=== PATIENT | female | born 1955 | race Caucasian/White ===

== ENCOUNTER 2019-04-10 01:29 | Observation (INO) | payer OTHER, SELFPAY ==
[2019-04-10] VITALS (15 sets, daily range): BP systolic 105–130; BP diastolic 62–118; PULSE 65–147; RESP 14–25; TEMP 36.5–36.9; O2SAT 96–100; BMI 36.9
--- NOTE | 2019-04-10 | ECHO_ITS ---
Patient Info Name: Odalys Douglass Age: 63 years : 1955 Gender: Female Ht: 67 in Wt: 235 lbs BSA: 2.29 m2 HR: 69 bpm BP: 119 / 67 mmHg Technical Quality: Good Exam Date: 04/10/2019 1:18 PM Exam Location: [facility] Pul[facility] Patient Status: Inpatient Admit Date: 04/10/2019 Staff Ordering Physician: Nadeem Alejandro MD (stephanie/marla) [employer]os Architect: Daniele Parks, RDCS, RT Attending Provider: lAexis Heard MD Exam Type: CA echo doppler color flow Study Info Indications I48.0 - Paroxysmal atrial fibrillation Complete two-dimensional, color flow and Doppler transthoracic echocardiogram is performed. Summary 1. Left ventricular systolic function is normal, estimated at 60-65%. 2. There is mildly increased left ventricular wall thickness. 3. Right ventricular systolic function is normal. 4. Left atrium is top normal to mildly dilated in size. 5. The mitral valve has normal leaflets. 6. There is no mitral valve regurgitation. 7. There is no aortic valve sclerosis. Left Ventricle Left ventricular chamber dimension is normal. Left ventricular systolic function is normal, estimated at 60-65%. There is mildly increased left ventricular wall thickness. Left ventricular septal wall motion is normal. The left ventricular diastolic function is grade I diastolic dysfunction. Right Ventricle Right ventricular chamber dimension is normal. Right ventricular systolic function is normal. Left Atria Left atrium is top normal to mildly dilated in size. Right Atria Right atrial chamber dimension is normal. Aortic Valve The aortic valve is trileaflet. There is no aortic valve sclerosis. There is no aortic valve stenosis. There is no aortic valve regurgitation. Pulmonic Valve The pulmonic valve is normal. There is no pulmonic valve stenosis. There is no pulmonic regurgitation. Mitral Valve The mitral valve has normal leaflets. There is no mitral valve stenosis. There is no mitral valve regurgitation. Tricuspid Valve The tricuspid valve leaflets are normal. There is trace tricuspid valve regurgitation. No pulmonary hypertension, estimated pulmonary arterial systolic pressure is 30 mmHg. Pericardium/Pleural The pericardium appears normal. There is no pericardial effusion. Inferior Vena Cava Normal inferior vena cava with >50% collapse upon inspiration consistent with normal right atrial pressure, 5 mmHg. Aorta The aortic root size at the sinus of Valsalva is normal. The prox ascending aorta size is normal. Left Ventricular Outflow Tract Name Value Normal LVOT 2D LVOT Diameter 2.1 cm LVOT Doppler LVOT Peak Velocity 124 cm/s LVOT Peak Gradient 6 mmHg LVOT Mean Gradient 3 mmHg LVOT VTI 27 cm LVOT VTI/AV VTI Ratio 0.7 LVOT Stroke Volume 93 ml LVOT CO 6.7 l/min LVOT CI 2.9 l/min/m2 Mitral Valve
--- NOTE | ~2019-04-10 | XR_ITS ---
EXAMINATION: XR chest 2V DATE: 04/10/2019 02:56 INDICATION: Atrial fibrillation with RVR TECHNIQUE: PA and lateral views of the chest are obtained. COMPARISON: None available FINDINGS: The lungs are free of acute opacities. There is no pleural effusion or pneumothorax. The ca rdiomediastinal silhouette is normal. There is moderate thoracic spondylosis. 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 IMPRESSION: 1. No acute cardiopulmonary abnormality. Reviewed, dictated and finalized at location A. NT RENEWAL SPECIALIST
--- NOTE | 2019-04-10 01:47 | ECG_ITS ---
Measurements Intervals [place] Rate: 147 P: AR: 0 QRS: 53 QRSD: 102 T: 3 QT: 309 QTc: 484 Interpretive Statements ATRIAL FIBRILLATION WITH RAPID VENTRICULAR RESPONSE DELAYED PRECORDIAL R/S TRANSITION BORDERLINE ST-T WAVE ABNORMALITY- DIFFUSE LEADS BASELINE WANDER- V5-V6 ABNORMAL ECG Electronically Signed On 04-10-2019 15:43:50 [employer]ACH[employer] PANEL JOINER by Mehran Dominguez D.O.
[2019-04-10 01:56] LABS: Basophils Percent Auto 0.4 % (0.2-1.2); Eosinophils Absolute Auto 0.3 K/mm3 (0-0.3); Eosinophils Percent Auto 4.7 % (0-4.4); Hematocrit 43.2 % (37.0-47.0); Hemoglobin 14.4 g/dL (12.0-15.0); Immature Granulocyte Absolute 0.01 K/mm3 (0.00-0.031); Immature Granulocyte Percent A 0.1 % (0-0.5); Lymphocytes Absolute Auto 2.48 K/mm3 (0.9-3.2); Lymphocytes Percent Auto 34.5 % (18.3-44.2); Mean Corpuscular HGB Conc 33.3 g/dl (32-36); Mean Corpuscular Hemoglobin 29.9 pg (26-34); Mean Corpuscular Volume 89.8 fl (80-100); Mean Platelet Volume 10.4 fl (7.4-10.4); Monocytes Absolute Auto 0.5 K/mm3 (0.1-0.6); Monocytes Percent Auto 7.2 % (2.6-8.5); Neutrophils Absolute Auto 3.8 K/mm3 (1.3-6.7); Neutrophils Percent Auto 53.1 % (45.5-73.1); Platelet Count Result 198 k/mm3 (150-375); Red Blood Count 4.81 M/mm3 (4.2-5.4); Red Cell Distribution Width 13.1 % (11.5-14.5); White Blood Count 7.2 K/mm3 (4.5-10.0)
[2019-04-10 02:08] LABS: Blood Urea Nitrogen 12 mg/dL (7-17); Calcium 9.7 mg/dL (8.4-10.2); Carbon Dioxide 23 mmol/L (22-30); Chloride 105 mmol/L (98-107); Estimated CRCL calculation 92 ml/min; Estimated Glomerular Filt Rate > 60; Glucose 201 mg/dL (65-105); Potassium 3.9 mmol/L (3.4-5.0); Sodium 140 mmol/L (137-145)
[2019-04-10 02:22] LABS: Troponin I < 0.012 ng/mL (0.000-0.034)
--- NOTE | 2019-04-10 02:22 | ED.CHESTPAIN ---
HPI - Chest Pain General Chief Complaint: Chest Pain Stated Complaint: CHEST PRESSURE Time Seen by Provider: 04/10/19 02:22 Source: patient and RN notes reviewed Mode of arrival: ambulatory Limitations: no limitations History of Present Illness HPI narrative: A 63 y/o female presents to the ED with constant lt CP beginning at 12:25 AM this morning. She states that she was sleeping and that at 12:25 AM she woke up with lt CP. She reports associated palpitations and SOB. She notes that her family has a extensive cardiac hx and that she has had 2 cardiac caths but denies any stent placement. She also denies any fevers, chills, N/V/D, or ABD pain. MD complaint: chest pain Onset (ago): hour(s) (1) Timing of current episode: constant Onset: awoke with symptoms Pain location: left chest Associated symptoms: dyspnea and palpitations Related Data Allergies Allergy/AdvReac Type Severity Reaction Status Date / Time azithromycin Allergy Stopped Verified 04/10/19 02:06 Breathing clindamycin Allergy Rash Verified 04/10/19 02:06 Penicillins Allergy Stopped Verified 04/10/19 02:06 Breathing Sulfa (Sulfonamide Allergy Stopped Verified 04/10/19 02:06 Antibiotics) Breathing Review of Systems Review of Systems: All systems reviewed & are unremarkable except as noted in HPI and below Constitutional: Constitutional: Denies chills and Denies fever(s) Cardiovascular: Cardiovascular: Reports chest pain (lt) and Reports palpitations Respiratory: Respiratory: Reports dyspnea Gastrointestinal: Gastrointestinal: Denies abdominal pain, Denies diarrhea, Denies nausea and Denies vomiting PMF Past Medical History Medical History (Updated 04/10/19 @ 05:04 by Blade Archer DO) Medical history unknown Surgical History Surgical History (Updated 04/10/19 @ 02:29 by Rene Gilbert) Hx of cardiac cath x2. Social History Social History (Updated 04/10/19 @ 02:29 by Rene Gilbert) Smoking status: Unknown if ever smoked Gender identity (if verbalized by the patient): Female Exam Narrative: Exam Narrative: APPEARANCE: No acute distress, nontoxic, resting in bed EYES: EOMI HEENT: Normocephalic, atraumatic, OMM RESPIRATORY: No respiratory distress Clear to auscultation bilaterally with no rhonchi wheezing or rales. CARDIOVASCULAR: Irregular and tachycardic without murmurs rubs or gallops. ABDOMINAL: Soft, nontender, nondistended, no rebound or guarding MUSCULOSKELETAl: Moves all extremities. No clubbing, cyanosis or edema. NEURO: Awake and alert. Following commands, speech normal, no focal deficits SKIN:: Warm, dry. No rashes lesions or abrasions PSYCHIATRIC: Normal affect/mood, Course Course Emergency Course: Discussed with Dr Poon presentation work-up. Agrees admission to his service. Recommends continue Cardizem drip with patient receive Lovenox and further inpatient evaluation Discussed with patient and family results of workup and diagnosis. Discussed need for admission. Patient and family understand and agree to current treatment plan Patient converted to sinus rhythm. Called and discussed with Dr Poon. This time recommends Cardizem drip stopped and patient started on Cardizem 30 mg p.o. every 6 hours Vital Signs Vital signs: Vital Signs Temperature 98.5 F 04/10/19 01:54 Pulse Rate 147 H 04/10/19 01:54 Respiratory Rate 25 H 04/10/19 01:54 Blood Pressure 112/70 04/10/19 01:54 Pulse Oximetry 100 04/10/19 01:54 Temperature 98.5 F 04/10/19 01:54 Pulse Rate 69 04/10/19 05:13 Respiratory Rate 16 04/10/19 05:13 Blood Pressure 107/94 H 04/10/19 05:13 Pulse Oximetry 97 04/10/19 05:13 MDM - Chest Pain Lab Data Result diagrams: 04/10/19 01:50 04/10/19 01:50 Labs: Lab Results 04/10/19 04/10/19 04/10/19 Range/Units 01:50 01:50 02:39 WBC 7.2 (4.5-10.0) K/mm3 RBC 4.81 (4.2-5.4) M/mm3 Hgb 14.4 (12.0-15.0) g/dL Hct 43.2
[2019-04-10 02:59] LABS: Partial Thromboplastin Time 28.1 SECONDS (22.3-36.8)
--- NOTE | 2019-04-10 03:11 | PC.NURSE ---
Per EDP Gianni, no dose of aspirin needed.
[2019-04-10] MEDS: SODIUM CHLORIDE 0.9% IV 1,000 ML 999 ML IV CONT (03:22)
--- NOTE | 2019-04-10 04:42 | ECG_ITS ---
Measurements Intervals [place] Rate: 68 P: 15 NC: 166 QRS: 40 QRSD: 118 T: 34 QT: 403 QTc: 432 Interpretive Statements SINUS RHYTHM DELAYED PRECORDIAL R/S TRANSITION CONSIDER INFERIOR INFARCT, AGE INDETERMINATE BASELINE WANDER- I, II ABNORMAL ECG Electronically Signed On 04-10-2019 15:49:46 ASSURANCE MANAGER INSURANCE by Mehran Dominguez D.O.
[2019-04-10] MEDS: ENOXAPARIN 120 MG/0.8 ML SYRINGE 109 MG SUB-Q (04:46)
[2019-04-10] MEDS: DILTIAZEM HCL 30 MG TABLET PO (05:17)
--- NOTE | 2019-04-10 05:50 | PC.NURSE ---
This patient, Odalys Douglass, was admitted to IMU Room 203-01 on 04/10/2019 at 0544. Patient/family oriented to hospital policies and general routines including ID bracelet, bed and alarms, visiting hours, pain management, procedures, bathroom and other care routines, personal items, smoking policy, room service/diet, and visiting hours. Valuables list has been completed. Information on how to activate the Rapid Response Team has been discussed. Patient/Family are encouraged to report perceived risks to care and to ask questions if they do not understand what they are told or what they should do.
[2019-04-10 05:55] LABS: Troponin I 0.131 ng/mL (0.000-0.034)
[2019-04-10 08:32] LABS: Troponin I 0.309 ng/mL (0.000-0.034)
[2019-04-10 09:27] LABS: Glucose Point of Care 58 (65-105)
[2019-04-10 09:47] LABS: Glucose Point of Care 131 (65-105)
--- NOTE | 2019-04-10 10:17 | PM.IMHP ---
H&P: HPI History of Present Illness Chief complaint: A FIB WITH RVR Narrative: Mrs. Douglass is a pleasant 63 year old female with past medical history of diabetes, hypertension and fatty liver disease who presented to [facility] because of palpitations. Patient was found to be in atrial fibrillation with rapid ventricular response. She was given medications and converted to normal sinus rhythm According the patient she is visiting here her family and she was supposed to go home back today. Patient lives in [place], [place] and does have transportation solutions manager over there. She stated she had palpitations once in the past during her stress test. She stated she had 2 cardiac catheterizations 2015 and 2018 which showed minor nonobstructive coronary artery disease. The patient denies diagnosis of arrhythmia in the past. Today she feels fine, denies any chest pain shortness or palpitations. Eager to go home Review of Systems Review of Systems: All systems reviewed & are unremarkable except as noted in HPI and below Constitutional: Constitutional: Reports as per HPI Eyes: Eyes: Reports as per HPI ENT: Reports system reviewed and no additional complaints, except as documented and Reports as per HPI Cardiovascular: Cardiovascular: Reports as per HPI Respiratory: Respiratory: Reports as per HPI Gastrointestinal: Gastrointestinal: Reports as per HPI Genitourinary: Genitourinary: Reports as per HPI Musculoskeletal: Musculoskeletal: Reports as per HPI PMFSH Past Medical History Medical History (Updated 04/10/19 @ 10:36 by Aleksey Saeed MD) Medical history unknown Surgical History Surgical History (Updated 04/10/19 @ 02:29 by Rene Gilbert) Hx of cardiac cath x2. Family History Family History (Updated 04/10/19 @ 05:49 by Nichole Fernández RN) Sibling Hx of CABG Cardiac arrest Sibling Cardiac arrest Father Diabetes mellitus Hx of CABG Mother Diabetes mellitus Hx of CABG Social History Social History (Updated 04/10/19 @ 02:29 by Rene Gilbert) Smoking status: Never smoker Alcohol intake: current Drinks per week: 4 Substance use: never Gender identity (if verbalized by the patient): Female Spiritual care concerns: Yes (Jew) Agree to blood products: Yes Meds Home Medications and Allergies Home Medications Medication Instructions Recorded Confirmed Type aspirin [Aspir-81] 81 mg PO DAILY 04/10/19 04/10/19 History atorvastatin 40 mg PO DAILY 04/10/19 04/10/19 History canagliflozin [Invokana] 100 mg PO DAILY 04/10/19 04/10/19 History citalopram 30 mg PO DAILY 04/10/19 04/10/19 History glipizide 10 mg PO DAILY 04/10/19 04/10/19 History insulin NPH isoph U-100 human 20 unit SUBCUT DAILY 04/10/19 04/10/19 History [Humulin N NPH U-100 Insulin] insulin NPH isoph U-100 human 80 unit SUBCUT HS 04/10/19 04/10/19 History [Humulin N NPH U-100 Insulin] insulin lispro [Humalog KwikPen See Protocol SUBCUT QID 04/10/19 04/10/19 History Insulin] losartan 50 mg PO BID 04/10/19 04/10/19 History metformin 850 mg PO BID 04/10/19 04/10/19 History Allergies Allergy/AdvReac Type Severity Reaction Status Date / Time azithromycin Allergy Stopped Verified 04/10/19 02:06 Breathing clindamycin Allergy Rash Verified 04/10/19 02:06 Penicillins Allergy Stopped Verified 04/10/19 02:06 Breathing Sulfa (Sulfonamide Allergy Stopped Verified 04/10/19 02:06 Antibiotics) Breathing Vital Signs Vital Signs - 24 hr 04/10/19 01:54 04/10/19 02:23 04/10/19 02:40 Temperature 36.9 C Pulse Rate 147 H 141 H 131 H Respiratory Rate 25 H 18 Blood Pressure 112/70 130/118 H Pulse Oximetry 100 99 04/10/19 03:30 04/10/19 04:23 04/10/19 05:13 Temperature Pulse Rate 128 H 73 69 Respiratory Rate 19 18 16 Blood Pressure 106/91 H 105/62 107/94 H Pulse Oximetry 96 97 97 04/10/19 05:44 04/10/19 06:00 04/10/19 08:47 Temperature 36.7 C 36.6 C Pulse Rate 68 65 68 Respiratory
[2019-04-10 13:03] LABS: Glucose Point of Care 127 (65-105)
[2019-04-10] MEDS: RIVAROXABAN 20 MG TABLET PO (17:07)
--- NOTE | 2019-05-15 17:10 | PM.DS ---
DS: Diagnosis Admitting Diagnosis Admitting Diagnosis: Chest pain, unspecified Discharge Diagnosis (1) Atrial fibrillation with rapid ventricular response: Code(s): I48.91 - Unspecified atrial fibrillation Status: Acute Assessment and Plan: Patient was found to be in atrial fibrillation with rapid ventricular response. She converted to normal sinus rhythm and remains in normal sinus rhythm. Will start metoprolol for heart rate control. patient was found to have borderline troponin which is probably due to her AFib with RVR. She stated she had 2 cardiac catheterizations 2015 and 2018 which showed only mild nonobstructive coronary artery disease The patient will benefit from anticoagulation - will start her on Xarelto 20 daily. (2) HTN (hypertension): Code(s): I10 - Essential (primary) hypertension Status: Acute Assessment and Plan: Currently well controlled. Continue current medication. . If echo is normal patient could be discharged. She needs to see her primary charger operator in about 1 week DS: Summary Time Spent with Patient Time attestation: Mrs. Douglass is a pleasant 63 year old female with past medical history of diabetes, hypertension and fatty liver disease who presented to [facility] because of palpitations. Patient was found to be in atrial fibrillation with rapid ventricular response. She was given medications and converted to normal sinus rhythm According the patient she is visiting here her family and she was supposed to go home back today. Patient lives in [place], [place] and does have charger operator over there. She stated she had 2 cardiac catheterizations 2015 and 2018 which showed minor nonobstructive coronary artery disease. Patient was admitted for observation. She converted to sinus rhythm with no recurrence of arrhythmia. Metoprolol dose was increased. Patient was discharged in stable condition . Total time spent providing and/or coordinating discharge services: Exam Const: General: alert and awake; No acute distress HENMT: Head: normal to inspection and atraumatic Ears: hearing grossly normal bilaterally Face and sinus: normal facial exam Eyes: General: appearance normal, both eyes and all related structures Pupils: Equal, round and reactive pupils present EOM: EOMs intact bilaterally Neck: Neck: normal visual inspection and no JVD Chest: Chest palpation & inspection: normal inspection of the chest Resp: Effort & Inspection: normal respiratory effort and no respiratory distress Auscultation: clear to auscultation bilaterally Cardio: Jugular venous distension: no JVD Rate: regular rate Heart sounds: S1 normal heart sound present, S2 normal heart sound present and no murmurs GI: Inspection: normal to inspection Auscultation: normal bowel sounds Skin: General skin exam: normal color Neuro: Cranial nerves: Yes Equal, round and reactive pupils present Extrem: General: normal to inspection and no clubbing, cyanosis or edema Discharge Plan Discharge Attending physician on discharge: Nadeem Alejandro Consulting providers: Aleksey Saeed ; Arthur Velez ; Mehran Dominguez Discharging Clinician: Nadeem Alejandro Anticipated Discharge Date/Time: 04/10/19 15:46 Patient Disposition: Home, Self-Care Activity: unlimited Diet: as tolerated Discharge Instructions: Follow up with your regular charger operator in 1-2 weeks Patient Instructions: Diltiazem (By mouth), A-fib (Atrial Fibrillation) (DC) Stand Alone Forms: General Discharge Information Follow-up/Referrals: UNKNOWN,DOCTOR [Primary Care Provider] - Discharge Medications: New diltiazem HCl [Cardizem CD] 120 mg capsule,extended release 24hr 120 mg PO DAILY 30 Days Qty: 30 RF: 0 Xarelto 20 mg tablet 20 mg PO DAILY 30 Days Qty: 30 RF: 0 Continued losartan 50 mg tablet 50 mg PO BID RF: 0 atorvastatin 40 mg tablet 40 mg PO DAILY RF: 0 glipizide 1
== END 2019-04-10 17:20 | disposition home or self-care (01) ==
LOC: ANHED 02:22 → ANHIMU 05:04
PROVIDERS: Family Medicine; Admitting Provider Specialist; Emergency Provider Emergency Medicine; Visit Provider Internal Medicine
DX: I48.91 Unspecified atrial fibrillation (principal); R79.89 Other specified abnormal findings of blood chemistry; I10 Essential (primary) hypertension; E11.9 Type 2 diabetes mellitus without complications; K76.0 Fatty (change of) liver, not elsewhere classified; Z79.4 Long term (current) use of insulin; Z79.82 Long term (current) use of aspirin; Z79.899 Other long term (current) drug therapy; Z82.49 Family history of ischemic heart disease and other diseases of the circulatory system
CPT/HCPCS: 36415; 71046; 80048; 84484; 85025; 85610; 85730; 93005; 93306; 96361; 96372; 96374; 99285; A9270; G0378; J1650; J7030